=== PATIENT | female | born 1960 | race American Indian/Alaskan Native ===

== ENCOUNTER 2024-05-26 08:32 | Outpatient (CLI) | payer OTHER | END 2024-05-26 08:33 | disposition home or self-care (01) | LOC: ULT 08:32 | PROVIDERS: ATTEND Family Medicine | DX: N76.0 Acute vaginitis (principal); R93.89 Abnormal findings on diagnostic imaging of other specified body structures; N85.8 Other specified noninflammatory disorders of uterus | CPT/HCPCS: 76856 ==